=== PATIENT | male | born 1950 | race Caucasian/White ===

== ENCOUNTER → 2017-01-14 | Outpatient (CLI) | payer OTHER ==
[~2017-01-14] MED LIST: ALBUAER2 INH; ATV1 PO; BSP5 PO; BUPR-79 PO; GFNSR600 PO; LITH1TAB PO; LVQ500 PO; PRD10 PO; PRLSR20 PO; RISP3TAB12 PO; TERA5CAP PO; TRAZ100T29 PO; XPNINS1255 INH
--- NOTE | 2017-01-15 07:36 | MAMMOGRAPHY REPORT ---
MALE BILATERAL DIGITAL DIAGNOSTIC MAMMOGRAM TOMOSYNTHESIS WITH CAD AND TARGETED BILATERAL ULTRASOUND: 01/14/2017 CLINICAL HISTORY: 66-year-old male presents with a tiny pea-sized palpable lump in the right lateral breast with associated pain that spreads into the axilla which she noted a few months ago. Also repo rts one episode of greenish left-sided nipple discharge in approximately June 2016. No skin erythema or thickening. Unknown family history of breast cancer. TECHNIQUE: Bilateral breast tomosynthesis in addition to standard 2D mammography was performed. Curre nt study was also evaluated with a Computer Aided Detection (CAD) system. COMPARISON: No prior exams were available for comparison. BREAST COMPOSITION: The breast parenchyma is nearly entirely fat. FINDINGS: A triangular skin palpable marker overlies the upper outer middle one third of the right br east. No suspicious mass, architectural distortion or cluster of microcalcifications is seen bilater ally. There is mild wispy glandular tissue development in the subareolar left breast, likely represe nting benign gynecomastia. No significant gynecomastia identified on the right. Targeted ultrasound was performed in the area of palpable lump in the 9:00 right breast, 2 cm from th e nipple. On palpation, there is a discrete rounded mass less than the site of a pea. On ultrasound, there is sonographically normal subcutaneous and fatty tissue. No suspicious solid or cystic mass. Additional sonographic evaluation was performed in the right upper outer quadrant extending into the axilla. A few morphologically normal lymph nodes are seen in the right axilla, without evidence of suspicious mass or suspicious adenopathy. No focal skin thickening or drainable fluid collection is identified. Then scanning was performed in the retroareolar aspect of the left breast with compariso n of the retroareolar right breast. There is mild glandular tissue development in the retroareolar l eft breast, compatible with gynecomastia and concordant with the mammographic finding. No lytic or t issue development seen in the retroareolar right breast. IMPRESSION: ACR BI-RADS CATEGORY 2: BENIGN, TARGETED ULTRASOUND ACR BI-RADS CATEGORY 2: BENIGN 1. No suspicious mammographic or targeted sonographic abnormality in the 9:00 right breast to explai n the tiny palpable lump felt by the patient. Therefore, clinical follow-up is recommended as biopsy of a clinically suspicious mass should not be precluded by negative imaging. 2. No suspicious right axillary lymphadenopathy. 3. Mild left-sided gynecomastia. These results and recommendations were discussed with the patient at the time of the exam. Approximately 10% of breast cancers are not detected with mammography. A negative mammographic report should not delay biopsy if a clinically suggestive mass is present. Lesvia Guo M.D. ay/:01/14/2017 14:35:01 [employer]: Isa SINGH(R)(M), [facility] letter sent: Normal 1/2 BI-RADS Code: ACR BI-RADS Category 2: Benign Ultrasound BI-RADS: ACR BI-RADS Category 2: Benign
== END | disposition home or self-care (01) ==
LOC: C.MAMM 13:52
PROVIDERS: ATTEND Family Medicine
DX: N62 Hypertrophy of breast (principal)

== ENCOUNTER → 2017-01-27 | Outpatient (CLI) | payer OTHER | END | disposition home or self-care (01) | LOC: C.LABMFLN 15:44 | PROVIDERS: ATTEND Family Medicine | DX: C61 Malignant neoplasm of prostate (principal); N62 Hypertrophy of breast; F41.9 Anxiety disorder, unspecified; M19.90 Unspecified osteoarthritis, unspecified site; D36.9 Benign neoplasm, unspecified site; K21.9 Gastro-esophageal reflux disease without esophagitis; J44.9 Chronic obstructive pulmonary disease, unspecified; J02.8 Acute pharyngitis due to other specified organisms ==

== ENCOUNTER → 2017-09-08 | Outpatient (CLI) | payer OTHER ==
[2017-09-09 16:01] LABS: ANA SCREEN TC 249X POSITIVE (NEGATIVE)
[2017-09-10 11:10] LABS: ANA TITER 1:40 TITER (<1:40)
== END | disposition home or self-care (01) ==
LOC: C.LABMFLN 10:40
PROVIDERS: ATTEND Psychiatry & Neurology Neurology
DX: R53.1 Weakness (principal); G60.9 Hereditary and idiopathic neuropathy, unspecified; G31.84 Mild cognitive impairment of uncertain or unknown etiology